=== PATIENT | male | born 1980 | race Caucasian/White ===

== ENCOUNTER → 2018-04-29 | Day surgery (SDC) | payer OTHER ==
[2018-04-22 16:24] LABS: BASOPHILS # (AUTO) 0.1 (0.0-0.1); EOSINOPHILS # (AUTO) 0.3 (0.0-0.4); EOSINOPHILS % 3.7 % (0.0-6.0); HEMATOCRIT 43.7 % (38.2-49.6); HEMOGLOBIN 14.3 g/dL (14.0-18.0); LYMPHOCYTES # (AUTO) 2.6 (1.0-3.2); LYMPHOCYTES % 32.5 % (18.0-39.1); MEAN CORPUSCULAR HEMOGLOBIN 27.1 pg (28-32); MEAN CORPUSCULAR HGB CONC 32.7 g/dL (31-35); MEAN CORPUSCULAR VOLUME 82.9 fL (81-99); MONOCYTES # (AUTO) 0.6 (0.2-0.8); MONOCYTES % 7.7 % (4.4-11.3); NEUTROPHILS # (AUTO) 4.4 (2.1-6.9); NEUTROPHILS % 54.7 % (38.7-80.0); PLATELET COUNT 214 x10e3/uL (140-360); RED BLOOD COUNT 5.27 x10e6/uL (4.3-5.7); RED CELL DISTRIBUTION WIDTH 13.7 % (11.7-14.4)
[~2018-04-29] MED LIST: ACETAMINOPHEN 1000 MG/100 ML IV ONE; BUPIVACAINE 0.25%/EPI 30ML SDV INJ ONE; DEXAMETHASONE SOD PHOS INJ 4 MG/ML VIAL ONE; FENTANYL CITRATE/PF 100MCG/2 ML INJ ONE; LIDOCAINE HCL 2% LOCAL INJ 5 ML SDV VIAL INJ ONE; MIDAZOLAM HCL 2 MG/2 ML VIAL ONE; ONDANSETRON HCL INJ 2 MG/ML VIAL ONE; PROPOFOL IV EMULSION 10 MG/ML 20 ML VIAL ONE; SEVOFLURANE INHAL SOLN 250 ML PEN BTL ONE
--- NOTE | 2018-04-29 10:49 | Operative Report ---
DATE OF PROCEDURE: April 29, 2018 PREOPERATIVE DIAGNOSES 1. Large gynecomastia of the right breast. 2. Mass of the right shoulder. POSTOPERATIVE DIAGNOSES 1. Large gynecomastia of the right breast. 2. Mass of the right shoulder. OPERATION PERFORMED 1. Right total mastectomy. 2. Resection of mass of the right shoulder. LEAD ACCOUNTANT: JULIA Beckham. ANESTHESIA: General. COMPLICATIONS: None. ESTIMATED BLOOD LOSS: Minimal. DESCRIPTION OF PROCEDURE: With the patient lying in bed in the supine position, under good general anesthesia, the right chest and shoulder were prepped with Betadine solution and draped in the usual manner. A semilunar incision was made in the periareolar region of the right breast down to the subcutaneous tissue. The nipple was then slowly and carefully lifted from the underlying mass. There was a rather large gynecomastia that extended all the way almost to the axilla. Flaps were then developed all the way around to encompass the entire mass, and the flaps were then deepened all the way down to the pectoralis fascia. The breast tissue was then removed off of the pectoralis fascia using the cautery, and the entire mass was removed. It was probably about 12 x 12 cm in size. After this was done, the whole area was thoroughly irrigated. Perfect hemostasis was ascertained. A 1/4-inch Waqar drain was left in the cavity and brought out through a separate stab wound incision. The wound was closed with interrupted vertical mattress sutures of 4-0 nylon. An incision was then made in the right shoulder overlying the palpable mass and taken down through the subcutaneous tissue. Immediately a well-encapsulated lipomatous mass was encountered, which was from the surrounding structures and totally and completely removed and sent for pathological examination. The whole area was thoroughly irrigated. Hemostasis was ascertained. The subcutaneous tissue was approximated with 3-0 Vicryl, and the skin was closed with interrupted vertical mattress sutures of 3-0 silk. A dressing was applied. The sponge, lap and needle count was correct. Patient tolerated the procedure well and returned to the recovery room in stable condition. Job#: [id number]
== END | disposition home or self-care (01) ==
LOC: OR 05:16
PROVIDERS: ATTEND Surgery
DX: N62 Hypertrophy of breast (principal); D17.21 Benign lipomatous neoplasm of skin and subcutaneous tissue of right arm; F41.9 Anxiety disorder, unspecified; Z01.812 Encounter for preprocedural laboratory examination
CPT/HCPCS: 19300; 23075; 36415; 85025; 88304; 88305; J1100; J2001; J2250; J2405; 88307